=== PATIENT | male | born 1930 | race Caucasian/White ===

== ENCOUNTER 2017-06-28 18:03 | Emergency (ER) | payer MEDICARE, OTHER ==
--- NOTE | 2017-06-28 18:10 | UC ---
Head Injury HPI - HPI Summary HPI Summary: 86 YEAR OLD PRESENTS WITH SEVERE RIGHT SIDED HEAD INJURY AND LACERATION. I WILL SEND HIM TO THE ER FOR HEAD CT. - History Of Current Complaint Stated Complaint: HEAD AND ARM LACERATION Time Seen by Provider: 06/28/17 18:07 Hx Obtained From: Patient Onset/Duration: Sudden Onset Severity Currently: Moderate Severity Initially: Moderate Pain Scale Used: 0-10 Numeric - 5 Character: Sharp, Throbbing - Allergies/Home Medications Allergies/Adverse Reactions: Allergies Allergy/AdvReac Type Severity Reaction Status Date / Time No Known Allergies Allergy Verified 06/28/17 19:35 PMH/Surg Hx/FS Hx/Imm Hx Previously Healthy: Yes Other History Of: Negative For: Anticoagulant Therapy - Surgical History Surgical History: Yes Surgery Procedure, Year, and Place: PENILE IMPLANT - Social History Alcohol Use: Daily Alcohol Amount: 1/wine with occasional extra drink Substance Use Type: None Smoking Status (MU): Never Smoked Tobacco Review of Systems Constitutional: Negative Skin: Other - RIGHT FACIAL LACERATION RIGHT HEAD INJURY Eyes: Negative ENT: Negative Respiratory: Negative Cardiovascular: Negative Gastrointestinal: Negative Genitourinary: Negative Motor: Negative Neurovascular: Negative Musculoskeletal: Negative Neurological: Negative Psychological: Negative All Other Systems Reviewed And Are Negative: Yes Physical Exam Triage Information Reviewed: Yes Vital Signs Reviewed: Yes Eye Exam: Normal ENT Exam: Normal Dental Exam: Normal Neck exam: Normal Neck: Positive: 1 Respiratory Exam: Normal Cardiovascular Exam: Normal Abdominal Exam: Normal Musculoskeletal Exam: Normal Neurological Exam: Normal Psychological Exam: Normal Skin: Positive: Other - RIGHT FACIAL LACERATION RIGHT HEAD INJURY Head Injury Course/Dx - Differential Dx/Diagnosis Provider Diagnoses: RIGHT HEAD INJURY. RIGHT HEAD LACERATION Discharge - Discharge Plan Condition: Stable Disposition: HOME Patient Education Materials: Head Injury (ED) Referrals: Alberto Mae MD [Medical Doctor] - Additional Instructions: PATIENT SUGGESTED TO GO TO ER FOR TRAUMATIC HEAD INJURY.
[2017-06-28 18:14] VITALS: BP 148/83
== END 2017-06-28 18:40 | disposition home or self-care (01) ==
LOC: UCEAST 18:03
DX: S09.90XA Unspecified injury of head, initial encounter (principal); S01.81XA Laceration without foreign body of other part of head, initial encounter; X58.XXXA Exposure to other specified factors, initial encounter; Y93.9 Activity, unspecified; Y92.9 Unspecified place or not applicable
CPT/HCPCS: 99213; G0463

== ENCOUNTER 2017-06-28 19:08 | Emergency (ER) | payer MEDICARE, OTHER ==
[2017-06-28 21:52] VITALS: BP 183/65
--- NOTE | 2017-06-29 07:27 | RAD ---
Indication: Fall, head injury. CT of the brain was performed without IV contrast. Comparison is made with previous exam dated September 30, 2014. Ventricular structures are midline. No midline shift is noted. Mild ventriculomegaly is noted. This is consistent with central and cortical atrophy. The extra-axial spaces are unremarkable. There is no evidence of intracranial mass or hemorrhage. No other high or low density lesions identified. Paranasal sinuses are otherwise unremarkable. Mastoid air cells and bony area. IMPRESSION: Chronic ischemic White matter change without evidence of intracranial mass or hemorrhage.
--- NOTE | 2017-07-15 12:30 | ED ---
Laceration/Wound HPI - HPI Summary HPI Summary: Pt is a transfer from [facility], s/p mechanical fall this date while walking dog, 1700. Pt with lacerations to forehead, RFA, right hand, pain to right shoulder. Pt denies LOC. Pt is not on anticoagulation, per his report. Denies confusion, memory loss, ataxic or unstable gait more than baseline or other neuro symptoms. He is otherwise healthy. - History of Current Complaint Stated Complaint: FALL, HEAD/RT WRIST/HAND LAC/COMING FROM [facility] Time Seen by Provider: 06/28/17 21:55 Hx Obtained From: Patient Mechanism of Injury: Sharp/Blunt Trauma Onset/Duration: Sudden Onset Alleviating: Compression Timing: Constant Onset Severity: Mild Current Severity: Mild Pain Intensity: 0 Pain Scale Used: 0-10 Numeric Associated Signs & Symptoms: Negative - Allergy/Home Medications Allergies/Adverse Reactions: Allergies Allergy/AdvReac Type Severity Reaction Status Date / Time No Known Allergies Allergy Verified 06/28/17 19:35 PMH/Surg Hx/FS Hx/Imm Hx Previously Healthy: Yes Endocrine/Hematology History: Denies: Hx Anticoagulant Therapy, Hx Diabetes Cardiovascular History: Denies: Hx Hypertension, Hx Pacemaker/ICD Sensory History: Reports: Hx Hearing Aid Psychiatric History: Denies: Hx Panic Disorder - Cancer History Cancer Type, 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 - Surgical History Surgery Procedure, Year, and Place: PENILE IMPLANT - Immunization History Date of Tetanus Vaccine: unk Date of Influenza Vaccine: unk Hx Pertussis Vaccination: No Immunizations Up to Date: Unable to Obtain/Confirm Infectious Disease History: No Infectious Disease History: Denies: Traveled Outside the [place] in Last 30 Days - Social History Occupation: Unemployed, Retired Lives: With Family Alcohol Use: Daily Alcohol Amount: 1/wine with occasional extra drink Hx Substance Use: No Substance Use Type: Reports: None Smoking Status (MU): Never Smoked Tobacco Review of Systems Constitutional: Negative Eyes: Negative Cardiovascular: Negative Respiratory: Negative Gastrointestinal: Negative Positive: no symptoms reported, see HPI Musculoskeletal: Negative Positive: Other - laceration Psychological: Normal All Other Systems Reviewed And Are Negative: Yes Physical Exam Triage Information Reviewed: Yes Vital Signs On Initial Exam: Initial Vitals Temp Pulse Resp Pulse Ox 98.6 F 71 16 100 06/28/17 19:25 06/28/17 19:25 06/28/17 19:25 06/28/17 19:25 Vital Signs Reviewed: Yes Skin: Positive: Warm, Skin Color Reflects Adequate Perfusion Head/Face: Positive: Normal Head/Face Inspection Eyes: Positive: EOMI, JESSICA, Conjunctiva Clear Musculoskeletal: Positive: Normal, Strength/ROM Intact Neurological: Positive: Sensory/Motor Intact, Alert, Oriented to Person Place, Time, Speech Normal Psychiatric: Positive: Normal, Affect/Mood Appropriate - Ирина Coma Scale Coma Scale Total: 15 Procedures - Laceration/Wound Repair 1 Location: head Description: Linear Anesthesia: 1.0% Betadine Prep?: No Laceration/Wound Explored: clean Suture Type: Prolene Layer Closure?: No Sterile Dressing Applied?: Yes Diagnostics - Vital Signs Vital Signs Temp Pulse Resp BP Pulse Ox 06/28/17 21:45 98.6 F 71 16 183/65 100 06/28/17 20:35 98.3 F 65 16 134/72 100 06/28/17 19:25 98.6 F 71 16 100 - Laboratory Lab Statement: Any lab studies that have been ordered have been reviewed, and results considered in the medical decision making process. Laceration Repair Course/Dx - Course Course Of Treatment: Pt is a transfer from [facility], s/p mechanical fall this date while walking dog, 1700. Pt with lacerations to forehead, RFA, right hand, pain to right shoulder. Pt denies LOC. Pt is not on anticoagulation, per his report. Patients wound were cleaned. CT brain shows no acute findings. Laceration sutured. 6 sutures placed in left forehead. Patient tolerated well. Discharge and care instructions given and is OK with discharge. - Differential Dx Differental Diagnoses: Abrasion, Avulsion, Laceration - Clinical Impression Provider Diagnoses: Head injury, Laceration Discharge - Discharge Plan Condition: Stable Disposition: HOME Patient Education Materials: Care For Your Stitches (ED), Laceration (ED), Abrasion (ED) Referrals: Sofi Stanford GAS SPECIALIST [Primary Care Provider] - Additional Instructions: Follow up with your PCP next week If you develop redness, streaks of red around the wound, swelling, abnormal drainage or you develop a fever - you need to come back to the ED right away. Suture removal in 5 days. Continue to keep covered x 24 hours, then leave open to air. May use antibiotic ointment over the area of abrasions. Keep abrasions covered for 3+ days
== END 2017-06-29 00:24 | disposition home or self-care (01) ==
LOC: ED 19:08
DX: S01.81XA Laceration without foreign body of other part of head, initial encounter (principal); S09.90XA Unspecified injury of head, initial encounter; M25.511 Pain in right shoulder; W19.XXXA Unspecified fall, initial encounter; Y93.K1 Activity, walking an animal; Y92.9 Unspecified place or not applicable; Z85.46 Personal history of malignant neoplasm of prostate
CPT/HCPCS: 12011; 70450; 99282